=== PATIENT | male | born 1960 | race Caucasian/White ===

== ENCOUNTER 2024-01-16 10:28 | Emergency (ER) | payer MEDICARE, SELFPAY ==
[2024-01-16 10:42] VITALS: BP 154/84; PULSE 62; RESP 16; TEMP 36.3; O2SAT 98; BMI 25.1
--- NOTE | 2024-01-16 10:44 | XR_ITS ---
WS: [id number] Exam: XR chest 1V portable [id number] Date/Time of Exam: 01/16/2024 10:49 AM Reason For Exam: Shortness of breath No priors. The lungs are fully expanded and clear. Normal cardiomediastinal silhouette. Unremarkable bony elemen ts. XR/XR chest 1V portable [id number] IMPRESSION: 1. Negative chest.
--- NOTE | 2024-01-16 10:44 | ECG_ITS ---
[facility] Test Date: 2024-01-16 Pat Name: Davy Garcia Department: Room: Gender: Male Communication Assistant: : 1960 Requested By: Zully Cisneros Order Number: [id number] Bravo MD: Nikolas King M.D. Measurements Intervals [place] Rate: 66 P: 70 [place]: 152 QRS: 48 QRSD: 111 T: 54 QT: 393 QTc: 413 Interpretive Statements SINUS RHYTHM INCOMPLETE RIGHT BUNDLE BRANCH BLOCK [90+ ms QRS DURATION, TERMINAL R IN V1/V2, 40+ ms S IN I/aVL/V4/V5/V6] No previous ECG available for comparison Electronically Signed On 01-17-2024 0:08:00 CDT by Nikolas King M.D. [id number]
[2024-01-16 10:50] VITALS: BP 154/84; PULSE 62; RESP 16; TEMP 36.3; O2SAT 98
[2024-01-16 11:12] VITALS: PULSE 61; RESP 16; O2SAT 97
[2024-01-16] MEDS: ipratropium-albuterol 3 mL Neb INHALATION (11:12)
[2024-01-16] MEDS: albuterol 2.5 mg/3 mL Neb INHALATION (11:12)
[2024-01-16 11:16] VITALS: PULSE 67
--- NOTE | 2024-01-16 11:21 | ED_ITS ---
HPI - SOB/Dyspnea 2 General: Chief Complaint: Shortness of Breath/Dyspnea Stated Complaint: SOB Time Seen by Provider: 01/16/24 10:42 History of Present Illness: HPI Narrative: 63-year-old man with a history of asthma /COPD who presents emergency room with shortness of breath cough and wheeze. Says he had some discomfort in his upper chest with breathing. No known fevers. No sputum production. No abdominal pain. No nausea or vomiting. No altered mental status. His albuterol only helps briefly. Review of Systems 2 Narrative: Constitutional symptoms: Negative except as documented in HPI. Skin symptoms: Negative except as documented in HPI. Eye symptoms: Negative except as documented in HPI. ENMT symptoms: Negative except as documented in HPI. Respiratory symptoms: Negative except as documented in HPI. Cardiovascular symptoms: Negative except as documented in HPI. Gastrointestinal symptoms: Negative except as documented in HPI. Genitourinary symptoms: Negative except as documented in HPI. Musculoskeletal symptoms: Negative except as documented in HPI. Neurologic symptoms: Negative except as documented in HPI. Psychiatric symptoms: Negative except as documented in HPI. Endocrine symptoms: Negative except as documented in HPI. Physical Exam 2 Narrative: EXAM NARRATIVE: General: Alert, no acute distress. Skin: Warm, dry. Head: Normocephalic, atraumatic. Neck: Supple, trachea midline. Eye: Extraocular movements are intact. Ears, nose, mouth and throat: Oral mucosa moist. Cardiovascular: Regular rate and rhythm, Normal peripheral perfusion. Respiratory: coarse, scattered wheeze, mild increased wob. tachypnea, breath sounds are equal, Symmetrical chest wall expansion. Gastrointestinal: Soft, Nontender, Non distended, Normal bowel sounds. Musculoskeletal: Normal ROM, no deformity. Neurological: Alert and oriented to person, place, time, and situation, No focal neurological deficit observed. Psychiatric: Cooperative, appropriate mood & affect. Course 2 Vital Signs: Vital signs: Vital Signs Temperature 97.4 F L 01/16/24 10:50 Pulse Rate 67 01/16/24 11:16 Respiratory Rate 16 01/16/24 11:12 Blood Pressure 154/84 01/16/24 10:50 Pulse Oximetry 97 01/16/24 11:12 Oxygen Delivery Me thod Room Air 01/16/24 11:12 MDM - SOB/Dyspnea Medical Decision Making Differential diagnosis for patient with shortness of breath includes but is not limited to and based on the above HPI, review of systems and physical exam: Pneumonia. Bronchitis. Asthma or COPD with acute exacerbation. Acute coronary syndrome / CT. Pulmonary embolism. Anxiety. Congestive heart failure. Viral infections including influenza and Covid-19. Atrial fibrillation. Anxiety. Pleural effusion. Pneumothorax. Workup: Lab work, chest X-ray and EKG ordered to evaluate, rule in and rule out above pathologies Lab Review: Laboratory results were reviewed and interpreted by myself the emergency room physician. Lab work is fairly unremarkable. Mild leukocytosis. No anemia. No renal failure. EKG: Time 1048. Rate 66. Normal sinus rhythm, No ST-T changes, no ectopy, normal WA & QRS intervals, This was reviewed and interpreted by myself the ER physician at 1051 Chest x-ray: No acute process. No infiltrate. No pneumothorax. This was reviewed and interpreted by myself the ER physician. I reviewed the patient's medical record. Reexamination: Patient appears somewhat improved. Wheezes improved. He has no increased work of breathing. No oxygen requirements. No altered mental status. No focal motor deficits. Assessment and plan: COPD with acute exacerbation ?Breathing treatments and Solu-Medrol in the emergency room. - Discharged home - Discussed findings and plan with patient. Answered any questions. - All laboratory values were reviewed and interpreted personally by myself, the ER physician - All imaging was reviewed and interpreted personally by myself, the ER physician. - Evaluation and treatment of this problem were appropriate in the emergency setting Lab Data 01/16/24 11:23 01/16/24 11:23 Labs/Radiology: Radiology Impressions Chest X-Ray 01/16/24 10:44 IMPRESSION: 1. Negative chest. Laboratory Results WBC 11.54 10^3/uL (3.29-11.43) H 01/16/24 11:23 RBC 4.41 10^6/uL (3.85-5.65) 01/16/24 11:23 Hgb 15.20 g/dL (11.27-16.99) 01/16/24 11:23 Hct 42.6 % (37-53) 01/16/24 11:23 MCV 96.6 fl (82-101) 01/16/24 11:23 MCH 34.5 pg (27-33) H 01/16/24 11:23 MCHC 35.7 g/dL (30-55) 01/16/24 11:23 RDW 12.2 % (12.1-15.1) 01/16/24 11:23 Plt Count 193 10^3/cmm (157-399) 01/16/24 11:23 MPV 10.9 fL (7.4-10.4) H 01/16/24 11:23 Neut % (Auto) 74.6 % 01/16/24 11:23 Lymph % (Auto) 17.8 % 01/16/24 11:23 Converse % (Auto) 6.4 % 01/16/24 11:23 Eos % (Auto) 0.4 % 01/16/24 11:23 Baso % (Auto) 0.3 % 01/16/24 11:23 Neut # (Auto) 8.60 10^3/uL (1.8-7.7) H 01/16/24 11:23 Lymph # (Auto) 2.1 10^3/uL (0.8-4.8) 01/16/24 11:23 [place]verse # (Auto) 0.7 10^3/uL (0.2-0.9) 01/16/24 11:23 Eos # (Auto) 0.1 10^3/uL (0.0-0.8) 01/16/24 11:23 Baso # (Auto) 0.0 10^3/uL (0.0-0.1) 01/16/24 11:23 Nucleated RBC % (auto) 0 % 01/16/24 11:23 Nucleated RBCs # 0.0 /100WBC 01/16/24 11:23 Sodium 139 mmol/L (136-145) 01/16/24 11:23 Potassium 4.1 mmol/L (3.5-5.1) 01/16/24 11:23 Chloride 105 mmol/L (98-107) 01/16/24 11:23 Carbon Dioxide 22 mmol/L (22-29) 01/16/24 11:23 Anion Gap 16.1 (5-19) 01/16/24 11:23 BUN 7 mg/dL (8-23) L 01/16/24 11:23 Creatinine 0.6 mg/dL (0.7-1.2) L 01/16/24 11:23 GFR Calculation 135.2 mL/min (90-130) H 01/16/24 11:23 Glucose 101 mg/dL (65-115) 01/16/24 11:23 Calculated Osmolality 286 mOsm/kg (285-295) 01/16/24 11:23 Calcium 9.1 mg/dL (8.5-10.5) 01/16/24 11:23 Total Bilirubin 0.4 mg/dL (0.15-1.2) 01/16/24 11:23 AST 17 U/L (0-40) 01/16/24 11:23 ALT 20 U/L (0-41) 01/16/24 11:23 Alkaline Phosphatase 63 U/L (40-130) 01/16/24 11:23 C-Reactive Protein 3.0 mg/L (0.0-4.9) 01/16/24 11:23 Total Protein 7.0 g/dL (6.6-8.7) 01/16/24 11:23 Albumin 4.2 g/dL (3.5-5.2) 01/16/24 11:23 Globulin 2.8 g/dL (1.3-4.6) 01/16/24 11:23 All radiology interpretation(s) finalized by discharge Discharge Plan Discharge Patient Disposition: Home Condition: Stable Prescriptions: New Zithromax Z-Kahlil 250 mg tablet See Rx Instructions .ROUTE .COMPLEX Qty: 6 0RF Rx Instructions: For 250 mg dose pack: take 500 mg today (day 1), then 250 mg for 4 days (days 2-5) prednisone 20 mg tablet 60 mg PO DAILY Qty: 20 0RF Rx Instructions: 3 tabs (60 mg) x 3 days. 2 tabs (40 mg) x 3 days. 1 tab (20 mg) x 3 days. 1/2 tab (10 mg) x 4 days albuterol sulfate 90 mcg/actuation HFA aerosol inhaler 2 inh inhalation Q4H PRN (Reason: shortness of breath or wheezing) Qty: 6.7 0RF Rx Instructions: Please provide patient with a spacer No Action multivitamin Tablet 1 tab PO .QOD atorvastatin 40 mg tablet 40 mg PO DAILY Aspir-81 81 mg Tablet,Delayed Release (Dr/Ec) 81 mg PO DAILY vitamin B complex Tablet 1 tab PO DAILY albuterol sulfate 90 mcg/actuation HFA aerosol inhaler 2 puff INHALATION PRN PRN (Reason: Shortness Of Breath) lysine 500 mg Tablet 500 mg PO DAILY Angel Ellipta 200-62.5-25 mcg blister with device 1 inh INHALATION DAILY vitamin D3-vit K1-vit MK4-MK7 50-500-1,500 mcg Capsule 1 cap PO DAILY PreserVision AREDS-2 250-90-40-1 mg Capsule 1 tab PO BID Discharge Orders: Discharge ED (Routine); Ordered 01/16/24 Ordered By: Zully Jung Discharge Diet: Usual diet Discharge Activity: Increase activity as tolerated Patient Instructions: How to Use a Metered-Dose Inhaler and a Spacer (ED) Activity Restrictions/Additional Instructions: Thank you for choosing [facility] for your healthcare needs today. Please realize this is an emergency room and that we are providing you with a medical screening exam and this may not be complete and all inclusive of all the testing and or work up that you may need to determine your ailment or severity of your illness. You have been screened and evaluated and felt safe for discharge. Health conditions do change or evolve sometimes and as such it is important that you follow up with your Primary Doctor to be re checked, 3-5 days is a general good time frame for follow up. You are always welcome to return to the ED for re assessment if your symptoms are worsening or you have new concerns Coding Level of Care Code ED Junior Programmer for Mario Hylton
[2024-01-16 11:30] LABS: Basophils % 0.3 %; Eosinophils # 0.1 10^3/uL (0.0-0.8); Eosinophils % 0.4 %; Hematocrit 42.6 % (37-53); Lymphocytes # 2.1 10^3/uL (0.8-4.8); Lymphocytes % 17.8 %; Mean Corpuscular HGB Conc 35.7 g/dL (30-55); Mean Corpuscular Hemoglobin 34.5 pg (27-33); Mean Corpuscular Volume 96.6 fl (82-101); Mean Platelet Volume 10.9 fL (7.4-10.4); Monocytes # 0.7 10^3/uL (0.2-0.9); Monocytes % 6.4 %; Neutrophils % 74.6 %; Nucleated Red Blood Cells % 0 %; Platelet Count 193 10^3/cmm (157-399); Red Blood Count 4.41 10^6/uL (3.85-5.65); Red Cell Distribution Width 12.2 % (12.1-15.1); White Blood Count 11.54 10^3/uL (3.29-11.43)
[2024-01-16] MEDS: methylPREDNISolone sod succ 125 mg/2 mL INJ IVP (11:43)
[2024-01-16 11:49] LABS: Alanine Aminotransferase 20 U/L (0-41); Albumin Level 4.2 g/dL (3.5-5.2); Alkaline Phosphatase 63 U/L (40-130); Anion Gap 16.1 (5-19); Aspartate Amino Transferase 17 U/L (0-40); Blood Urea Nitrogen 7 mg/dL (8-23); Calcium 9.1 mg/dL (8.5-10.5); Carbon Dioxide 22 mmol/L (22-29); Chloride 105 mmol/L (98-107); Globulin 2.8 g/dL (1.3-4.6); Glomerular Filtration Rate 135.2 mL/min (90-130); Glucose 101 mg/dL (65-115); Osmolality Calculated 286 mOsm/kg (285-295); Potassium 4.1 mmol/L (3.5-5.1); Sodium 139 mmol/L (136-145); Total Bilirubin 0.4 mg/dL (0.15-1.2)
[2024-01-16 11:50] LABS: Creatinine Clr Calc Pharmacy 95.3964
[2024-01-16 12:57] VITALS: PULSE 65; O2SAT 98
== END 2024-01-16 12:58 | disposition home or self-care (01) ==
PROVIDERS: Emergency Provider Emergency Medicine
DX: J44.1 Chronic obstructive pulmonary disease with (acute) exacerbation (principal); Z79.82 Long term (current) use of aspirin
CPT/HCPCS: 71045; 80053; 85025; 86140; 93005; 94640; 96374; 99285; J2919; J7613

== ENCOUNTER 2024-05-17 22:12 | Emergency (ER) | payer MEDICARE, SELFPAY ==
[2024-05-17 22:27] VITALS: BP 177/93; PULSE 106; RESP 22; TEMP 36.3; O2SAT 99; BMI 25.1
--- NOTE | 2024-05-17 22:33 | ECG_ITS ---
[facility] Test Date: 2024-05-17 Pat Name: Davy Garcia Department: Room: Gender: Male Global Creative Chairman: : 1960 Requested By: Fermin Briones Order Number: [id number] Bravo MD: Nikolas King M.D. Measurements Intervals [place] Rate: 62 P: 74 OR: 159 QRS: 42 QRSD: 102 T: 60 QT: 394 QTc: 402 Interpretive Statements SINUS RHYTHM INCOMPLETE RIGHT BUNDLE BRANCH BLOCK [90+ ms QRS DURATION, TERMINAL R IN V1/V2, 40+ ms S IN I/aVL/V4/V5/V6] Compared to ECG 01/16/2024 10:48:50 No significant changes Electronically Signed On 05-19-2024 00:13:31 CDT by Nikolas King M.D. [id number]
--- NOTE | 2024-05-17 22:42 | XRR_ITS ---
PROCEDURE INFORMATION: Exam: XR Chest Exam date and time: 05/17/2024 11:02 PM Age: 64 years old Clinical indication: Shortness of breath; Patient HX: C/O SOB and dyspnea TECHNIQUE: Imaging protocol: Radiologic exam of the chest. Views: 1 view. COMPARISON: CR XR chest 1V portable [id number] 01/16/2024 10:50 AM FINDINGS: Lungs: Emphysematous changes. Pleural spaces: Unremarkable. No pleural effusion. No pneumothorax. Heart/Mediastinum: Unremarkable. No cardiomegaly. Bones/joints: Unremarkable. XR/XR chest 1V portable [id number] IMPRESSION: Emphysematous changes, negative for infiltrate.
--- NOTE | 2024-05-17 23:02 | ED_ITS ---
HPI - SOB/Dyspnea 2 General: Chief Complaint: Shortness of Breath/Dyspnea Stated Complaint: SOB Time Seen by Provider: 05/17/24 22:42 History of Present Illness: HPI Narrative: Patient is a 64-year-old male that presents to the emergency department with chest tightness, dyspnea. Onset 1 week ago. Patient reports that approximately 10 days ago he underwent a cardiac stress test. COPD symptoms began to develop approximately 48 hours after the stress test. He denies congestion. Intermittent cough that is nonproductive. Denies chest pain but has tightness. Patient denies fever, chills, nausea vomiting. Associated symptoms: Deny abdominal pain, chest congestion, chest pain, dizziness, extremity pain, fever(s), nausea, orthopnea, palpitations, polydipsia, polyuria or vomiting Related Data Home Medications Medication Instructions Recorded Confirmed albuterol sulfate 90 mcg/actuation 2 puff inhalation PRN PRN 01/16/24 01/16/24 aerosol inhaler Shortness Of Breath aspirin 81 mg tablet,delayed 81 mg PO DAILY 01/16/24 01/16/24 release atorvastatin 40 mg tablet 40 mg PO DAILY 01/16/24 01/16/24 fluticasone fur. 200 mcg-umeclid 1 inh inhalation DAILY 01/16/24 01/16/24 62.5 mcg-vilant 25 mcg inhalat.powder (Trelegy Ellipta) lysine 500 mg tablet 500 mg PO DAILY 01/16/24 01/16/24 multivitamin 1 tab PO .QOD 01/16/24 01/16/24 vit C 250 mg-vit E 90 mg-zinc 40 1 tab PO BID 01/16/24 01/16/24 mg-copper 1 ts-qrfgrr-fautci capsule (PreserVision AREDS-2) vit D3 50 mcg-vitamin K1 500 1 cap PO DAILY 01/16/24 01/16/24 mcg-MK4 1,500 mcg-MK7 180 mcg capsule vitamin B complex 1 tab PO DAILY 01/16/24 01/16/24 Previous Rx's Medication Instructions Recorded albuterol sulfate 90 mcg/actuation 2 inh inhalation Q4H PRN shortness 01/16/24 aerosol inhaler of breath or wheezing #6.7 grams azithromycin 250 mg tablet See Rx Instructions PO .COMPLEX #6 01/16/24 (Zithromax Z-Kahlil) tabs prednisone 20 mg tablet 60 mg (3 x 20 mg) PO DAILY #20 tabs 01/16/24 amoxicillin 875 mg-potassium 1 tab PO BID 5 days #10 tabs 05/18/24 clavulanate 125 mg tablet prednisone 20 mg tablet 20 mg PO BID 5 days #10 tabs 05/18/24 Allergies Allergy/AdvReac Type Severity Reaction Status Date / Time codeine Allergy ADR-Headach Verified 05/17/24 22:34 e Review of Systems 2 General: Reports: 10 or more systems reviewed and unremarkable except in HPI and below Narrative: Constitutional symptoms: Negative except as documented in HPI. Skin symptoms: Negative except as documented in HPI. Eye symptoms: Negative except as documented in HPI. ENMT symptoms: Negative except as documented in HPI. Respiratory symptoms: Negative except as documented in HPI. Cardiovascular symptoms: Negative except as documented in HPI. Gastrointestinal symptoms: Negative except as documented in HPI. Genitourinary symptoms: Negative except as documented in HPI. Musculoskeletal symptoms: Negative except as documented in HPI. Neurologic symptoms: Negative except as documented in HPI. Psychiatric symptoms: Negative except as documented in HPI. Endocrine symptoms: Negative except as documented in HPI. Const: Denies: fever(s), chills, change in appetite, change in weight, fatigue or malaise Eyes: Denies: change in vision, eye discomfort, eye discharge or eye redness ENMT: Denies: throat pain, enlarged tonsils, odynophagia, hoarseness, ear or mastoid pain, ear discharge, change in hearing, tinnitus, nasal discharge, nasal congestion, post nasal drip or sinus pain Card: Denies: chest pain, palpitations, irregular heart rhythm, edema, dyspnea on exertion, orthopnea or leg pain with exertion Resp: Reports: dyspnea, non-productive cough and pain on inspiration; Denies: productive cough, wheezing, stridor or chest congestion GI: Denies: abdominal pain, nausea, vomiting, dysphagia, diarrhea, constipation, bloating, GI cramping or hematochezia : Denies: flank pain, dysuria, urinary frequency, urinary urgency, urinary hesitancy, oliguria or hematuria Musc: Denies: neck pain, back pain, extremity pain, joint pain, joint swelling, joint redness, joint warmth or muscle weakness Skin/Breast: Denies: rash, pruritus, erythema, photosensitivity or new lesions Neuro: Denies: headache(s), numbness in extremities, weakness in extremities, sensory changes, lack of coordination, difficulty walking, frequent falls, dizziness, confusion, Slurred speech present, difficulty communicating thoughts, seizure-like activity or involuntary movements Endo: Denies: polyuria, polydipsia or tired all the time Braeden/Lymph: Denies: easy bruising or easy bleeding Physical Exam 2 Narrative: EXAM NARRATIVE: General: Alert, no acute distress. Skin: Warm, dry. Head: Normocephalic, atraumatic. Neck: Supple, trachea midline. Eye: Extraocular movements are intact. Ears, nose, mouth and throat: Oral mucosa moist. Cardiovascular: Regular rate and rhythm, Normal peripheral perfusion. Respiratory: coarse, mild increased wob. tachypnea, breath sounds are equal, Symmetrical chest wall expansion. Gastrointestinal: Soft, Nontender, Non distended, Normal bowel sounds. Musculoskeletal: Normal ROM, no deformity. Neurological: Alert and oriented to person, place, time, and situation, No focal neurological deficit observed. Psychiatric: Cooperative, appropriate mood & affect. Course 2 Vital Signs: Vital signs: Vital Signs Temperature 97.4 F L 05/17/24 22:27 Pulse Rate 63 05/17/24 23:51 Respiratory Rate 13 05/17/24 23:51 Blood Pressure 126/85 05/17/24 23:51 Pulse Oximetry 94 05/17/24 23:51 Oxygen Delivery Me thod Room Air 05/17/24 23:51 MDM - SOB/Dyspnea Medical Decision Making Patient is a 64-year-old man that presents to the emergency department with complaints of dyspnea, chest tightness on inspiration, intermittent cough. He has a history of COPD and has had a similar type episode where he was diagnosed with COPD exacerbation. He states that his symptoms began after he was involved in a physical stress test. His symptoms have progressed for over a week. Patient underwent chest x-ray and laboratory evaluation which reveals a mild leukocytosis and emphysema type changes but no definitive infiltrates. His oxygen saturation has been stable at 94 to 99% on room air. He is afebrile, has a sinus rhythm. EKG shows sinus rhythm with a ventricular rate of 72 beats a minute and a QTc of 426. No ectopy, ST elevation or abnormal T wave inversion. Patient has a normal troponin, normal renal function, and normal electrolytes. Plan to treat him for COPD exacerbation. He was given steroids here in the emergency department as well as antibiotics. He will go home on the same medications. Lab Data 05/17/24 22:54 05/17/24 22:54 Labs/Radiology: Radiology Impressions Chest X-Ray 05/17/24 22:42 IMPRESSION: Emphysematous changes, negative for infiltrate. Laboratory Results WBC 12.34 10^3/uL (3.29-11.43) H 05/17/24 22:54 RBC 4.57 10^6/uL (3.85-5.65) 05/17/24 22:54 Hgb 15.30 g/dL (11.27-16.99) 05/17/24 22:54 Hct 44.4 % (37-53) 05/17/24 22:54 MCV 97.2 fl (82-101) 05/17/24 22:54 MCH 33.5 pg (27-33) H 05/17/24 22:54 MCHC 34.5 g/dL (30-55) 05/17/24 22:54 RDW 12.4 % (12.1-15.1) 05/17/24 22:54 Plt Count 188 10^3/cmm (157-399) 05/17/24 22:54 MPV 11.1 fL (7.4-10.4) H 05/17/24 22:54 Neut % (Auto) 63.4 % 05/17/24 22:54 Lymph % (Auto) 28.6 % 05/17/24 22:54 Divide % (Auto) 6.3 % 05/17/24 22:54 Eos % (Auto) 1.0 % 05/17/24 22:54 Baso % (Auto) 0.4 % 05/17/24 22:54 Neut # (Auto) 7.82 10^3/uL (1.8-7.7) H 05/17/24 22:54 Lymph # (Auto) 3.5 10^3/uL (0.8-4.8) 05/17/24 22:54 Divide # (Auto) 0.8 10^3/uL (0.2-0.9) 05/17/24 22:54 Eos # (Auto) 0.1 10^3/uL (0.0-0.8) 05/17/24 22:54 Baso # (Auto) 0.1 10^3/uL (0.0-0.1) 05/17/24 22:54 Nucleated RBC % (auto) 0 % 05/17/24 22:54 Nucleated RBCs # 0.0 /100WBC 05/17/24 22:54 Sodium 137 mmol/L (136-145) 05/17/24 22:54 Potassium 3.9 mmol/L (3.5-5.1) 05/17/24 22:54 Chloride 102 mmol/L (98-107) 05/17/24 22:54 Carbon Dioxide 24 mmol/L (22-29) 05/17/24 22:54 Anion Gap 14.9 (5-19) 05/17/24 22:54 BUN 6 mg/dL (8-23) L 05/17/24 22:54 Creatinine 0.6 mg/dL (0.7-1.2) L 05/17/24 22:54 GFR Calculation 134.8 mL/min (90-130) H 05/17/24 22:54 Glucose 99 mg/dL (65-115) 05/17/24 22:54 Calculated Osmolality 282 mOsm/kg (285-295) L 05/17/24 22:54 Calcium 8.9 mg/dL (8.5-10.5) 05/17/24 22:54 Total Bilirubin 0.3 mg/dL (0.15-1.2) 05/17/24 22:54 AST 23 U/L (0-40) 05/17/24 22:54 ALT 30 U/L (0-41) 05/17/24 22:54 Alkaline Phosphatase 73 U/L (40-130) 05/17/24 22:54 Troponin T Baseline 8 ng/L (0-15) 05/17/24 22:54 NT-Pro-B Natriuret Pep 47 pg/mL (0-125) 05/17/24 22:54 Total Protein 6.5 g/dL (6.6-8.7) L 05/17/24 22:54 Albumin 4.5 g/dL (3.5-5.2) 05/17/24 22:54 Globulin 2.0 g/dL (1.3-4.6) 05/17/24 22:54 All radiology interpretation(s) finalized by discharge Discharge Plan Discharge Patient Disposition: Home Clinical Impression: Acute exacerbation of chronic obstructive airways disease Condition: Stable Prescriptions: New amoxicillin-pot clavulanate 875-125 mg tablet 1 tab PO BID 5 Days Qty: 10 0RF prednisone 20 mg tablet 20 mg PO BID 5 Days Qty: 10 0RF No Action multivitamin Tablet 1 tab PO .QOD atorvastatin 40 mg tablet 40 mg PO DAILY Aspir-81 81 mg Tablet,Delayed Release (Dr/Ec) 81 mg PO DAILY vitamin B complex Tablet 1 tab PO DAILY albuterol sulfate 90 mcg/actuation HFA aerosol inhaler 2 puff INHALATION PRN PRN (Reason: Shortness Of Breath) lysine 500 mg Tablet 500 mg PO DAILY Trelegy Ellipta 200-62.5-25 mcg blister with device 1 inh INHALATION DAILY vitamin D3-vit K1-vit MK4-MK7 50-500-1,500 mcg Capsule 1 cap PO DAILY PreserVision AREDS-2 250-90-40-1 mg Capsule 1 tab PO BID Zithromax Z-Kahlil 250 mg tablet See Rx Instructions .ROUTE .COMPLEX Qty: 6 0RF Rx Instructions: For 250 mg dose pack: take 500 mg today (day 1), then 250 mg for 4 days (days 2-5) prednisone 20 mg tablet 60 mg PO DAILY Qty: 20 0RF Rx Instructions: 3 tabs (60 mg) x 3 days. 2 tabs (40 mg) x 3 days. 1 tab (20 mg) x 3 days. 1/2 tab (10 mg) x 4 days albuterol sulfate 90 mcg/actuation HFA aerosol inhaler 2 inh inhalation Q4H PRN (Reason: shortness of breath or wheezing) Qty: 6.7 0RF Rx Instructions: Please provide patient with a spacer Discharge Orders: Discharge ED (Routine); Ordered 05/18/24 Ordered By: Kwadwo Vega Referrals: Surya Robert MD [Primary Care Provider] - Discharge Diet: Advance as tolerated Discharge Activity: Resume usual activity Patient Instructions: COPD (Chronic Obstructive Pulmonary Disease) (ED), Pain Management Coding Level of Care Code ED [employer] for Mario Hylton
[2024-05-17 23:04] LABS: Basophils # 0.1 10^3/uL (0.0-0.1); Basophils % 0.4 %; Eosinophils # 0.1 10^3/uL (0.0-0.8); Hematocrit 44.4 % (37-53); Lymphocytes # 3.5 10^3/uL (0.8-4.8); Lymphocytes % 28.6 %; Mean Corpuscular HGB Conc 34.5 g/dL (30-55); Mean Corpuscular Hemoglobin 33.5 pg (27-33); Mean Corpuscular Volume 97.2 fl (82-101); Mean Platelet Volume 11.1 fL (7.4-10.4); Monocytes # 0.8 10^3/uL (0.2-0.9); Monocytes % 6.3 %; Neutrophils # 7.82 10^3/uL (1.8-7.7); Neutrophils % 63.4 %; Nucleated Red Blood Cells % 0 %; Platelet Count 188 10^3/cmm (157-399); Red Blood Count 4.57 10^6/uL (3.85-5.65); Red Cell Distribution Width 12.4 % (12.1-15.1); White Blood Count 12.34 10^3/uL (3.29-11.43)
[2024-05-17] MEDS: methylPREDNISolone sod succ 125 mg/2 mL INJ IV (23:20)
[2024-05-17 23:26] LABS: Troponin(5th) Baseline 8 ng/L (0-15)
[2024-05-17 23:28] VITALS: BP 142/91; PULSE 60; RESP 16; O2SAT 96
[2024-05-17 23:34] LABS: Alanine Aminotransferase 30 U/L (0-41); Albumin Level 4.5 g/dL (3.5-5.2); Alkaline Phosphatase 73 U/L (40-130); Anion Gap 14.9 (5-19); Aspartate Amino Transferase 23 U/L (0-40); Blood Urea Nitrogen 6 mg/dL (8-23); Calcium 8.9 mg/dL (8.5-10.5); Carbon Dioxide 24 mmol/L (22-29); Chloride 102 mmol/L (98-107); Glomerular Filtration Rate 134.8 mL/min (90-130); Glucose 99 mg/dL (65-115); NT Pro B Type Natriuretic Pept 47 pg/mL (0-125); Osmolality Calculated 282 mOsm/kg (285-295); Potassium 3.9 mmol/L (3.5-5.1); Sodium 137 mmol/L (136-145); Total Bilirubin 0.3 mg/dL (0.15-1.2); Total Protein 6.5 g/dL (6.6-8.7)
[2024-05-17 23:37] LABS: Creatinine Clr Calc Pharmacy 94.1244
[2024-05-17 23:51] VITALS: BP 126/85; PULSE 63; RESP 13; O2SAT 94
[2024-05-18] VITALS: BP 145/95; PULSE 59; RESP 14; O2SAT 95
[2024-05-18 00:08] LABS: Covid PCR NEGATIVE (Negative); Influenza A NEGATIVE (Negative); Influenza B NEGATIVE (Negative); Respiratory Syncytial Virus Ce NEGATIVE (Negative)
[2024-05-18] MEDS: amoxicillin-clav 875-125 mg Tablet 1 TAB PO (00:11)
[2024-05-18 00:26] VITALS: BP 133/89; PULSE 60; RESP 14; O2SAT 95
== END 2024-05-18 00:26 | disposition home or self-care (01) ==
PROVIDERS: Emergency Provider Nurse Practitioner; PCP Family Medicine
DX: J44.1 Chronic obstructive pulmonary disease with (acute) exacerbation (principal); Z79.82 Long term (current) use of aspirin
CPT/HCPCS: 0241U; 71045; 80053; 83880; 84484; 85025; 93005; 96374; 99285; J2919

== ENCOUNTER 2025-02-23 09:03 | Outpatient (CLI) | payer MEDICARE, SELFPAY ==
--- NOTE | 2025-02-23 09:09 | CT_ITS ---
WS: [id number] LDCT LUNG CANCER SCREENING TECHNIQUE: Noncontrast CT of the chest with coronal and sagittal reformatted images. CLINICAL INFORMATION: NICOTINE DEPENDENCE,CIGARETTES COMPARISON: None. DLP: 64.81 mGy.cm DIvol: Mean CTDIvol: 1.10 (mGy) All CT scans at [facility] use at least one of these dose optimization techniques: automated exposure control; mA and/or kV adjustment per patient size (includes targeted exams where dose is matched to clinical indication); or iterative reconstruction. FINDINGS: Moderate chronic emphysematous changes. Few tiny scattered subcentimeter nodules. No suspicious pulmonary parenchymal abnormalities. Subsegmental atelectasis in the lingula. Aortic calcification. Coronary calcification. No mediastinal or hilar lymphadenopathy. Normal GE junction. No axillary lymphadenopathy. Mild thoracic curve. Mild thoracic kyphosis. Slight nodular thickening LEFT adrenal gland. CT/CT lung screening [id number] IMPRESSION: LUNG-RADS: 2-Benign Appearance or Behavior FOLLOW UP: 12 Month: Continue annual screening with LDCT
== END 2025-02-23 09:04 | disposition home or self-care (01) ==
LOC: RAD 09:04
PROVIDERS: PCP Family Medicine; Visit Provider Family Medicine
DX: Z12.2 Encounter for screening for malignant neoplasm of respiratory organs (principal); F17.210 Nicotine dependence, cigarettes, uncomplicated; J43.9 Emphysema, unspecified; J98.11 Atelectasis; I35.8 Other nonrheumatic aortic valve disorders; M40.294 Other kyphosis, thoracic region; E27.8 Other specified disorders of adrenal gland; I25.10 Atherosclerotic heart disease of native coronary artery without angina pectoris
CPT/HCPCS: 71271

== ENCOUNTER 2025-04-09 12:51 | Outpatient (CLI) | payer MEDICARE, SELFPAY | END 2025-04-09 12:52 | disposition home or self-care (01) | LOC: SLEEP 12:53 | PROVIDERS: PCP Family Medicine; Referring Provider Family Medicine; Visit Provider Internal Medicine Pulmonary Disease | DX: G47.30 Sleep apnea, unspecified (principal) | CPT/HCPCS: G0399 ==

== ENCOUNTER 2025-04-19 14:12 | Emergency (ER) | payer MEDICARE, SELFPAY ==
--- OUTSIDE RECORDS SUMMARY | 2012-04-27 06:25 | XMS_ITS | Continuity of Care Document ---
Author Organization [facility] Address [address] [place] [address] Phone Care Team Providers Care Redipper Name Role Phone Unavailable Unavailable Unavailable Procedures Procedure Date DOT Physical With UA Ua Dip Stik/tablet; Wo Micro A 12 DOT Physical With UA Advance Directives Directive Yes / No Effective Date File Name No Information Encounters Encounter Description Practice Location Reason(s) For Visit Diagnoses Date Provider Providers Copied on Encounter DOT Physical With UA [facility], [address], [place], [place], [id number], [place] tel:[phone] [facility] DOT Physical (chief complaint) No Information No Information DOT Physical With [facility], [address], [place], [place], [id number], [place] tel:[phone] [facility] Med Exam Nec-admin PurpMed Exam Nec-admin Purp No Information Family History Family Member Type Diagnosis Age At Onset No Information Payers Payer name Insurance type Covered constitution party ID Authoriza tion(s) No Information Social History Type Description Quantity Date Captured Comments Sex Male Smoking Status No Information Vital Signs Date / Time: Height Weight BMI Pulse Rate Blood Pressure Temperature Respiratory Rate Body Surface Area Head Circumference Head Circ. Percentile Wt./Ramón. Percentile BMI percentile Pulse Ox Inhaled Ox 11:45 AM 69.00 in 77.100 kg (170.00 lbs) 25.1 1 kg/m eter (2) 87 /min 110/70 mm[Hg] 97.40 F 14 /min 98 % Chief Complaint And Reason For Visit From encounter dated '04/27/2012 11:25'. DOT Physical (chief complaint) Reason For Referral Reason For Referral No Information History Of Present Illness Encounter Date Complaint History Of Prese nt Illness No Information Functional Status Date Functional Assessmen t No Information Instructions Date Instruction Additional Infor mation No Information Assessments Type Assessment Date No Information Patient Care Teams Name Effective Dates (start - stop) Status Members No Information
--- OUTSIDE RECORDS SUMMARY | 2013-02-28 02:45 | XMS_ITS | Continuity of Care Document ---
Author Organization [facility] Address [address] [place] [address] Phone Care Team Providers Care Bridge Builder Name Role Phone Siddhartha Bender MD Unavailable Unavailable Allergies, Adverse Reactions, Alerts Substance Reaction Status Criticality codeine Active No Information Medications Medication Instructions Dosage Effective Dates (start - stop) Status Comments PreserVision AREDS 14,320 unit-226 mg-200 unit capsule - Active MULTIVITAMINS (unknown strength) Not Available - Active Advance Directives Directive Yes / No Effective Date File Name Resuscitation Not Answered N/A N/A Life Support Not Answered N/A N/A Intubation Not Answered N/A N/A Antibiotics Not Answered N/A N/A IV Fluid Support Not Answered N/A N/A Tube Feed Not Answered N/A N/A Other Directive N/A N/A WARNING:The information contained in this section is historical and is provided for information only and does not constitute a legal document or any assurance that the information is still accurate. Please verify the information with the cruz of the legal document before using it for clinical purposes. Encounters Encounter Description Practice Location Reason(s) For Visit Diagnoses Date Provider [facility], [address], [place], [id number], tel:[phone] [place] No Information 2012 Napoleon Carl. [address], [place], [id number], . tel:[phone] [facility], [address], [place], [id number], tel:[phone] [place] No Information 2012 Napoleon Carl. [address], [id number], [place]. tel:[phone] [facility], [address], [place], [id number], tel:[phone] [place] No Information 2011 Napoleon Carl. [address], [place], [id number], [place]. tel:[phone] [facility], [address], [place], [id number], tel:[phone] [place] No Information 2011 Napoleon Carl. [address], [place], [id number], [place]. tel:[phone] Family History Family Member Type Diagnosis Age At Onset Problem (finding) Family history of No known significant family history Payers Payer name Insurance type Covered democrat ID Authoressence acevedo(s) [facility] [id number] [employer] Copay Card Program CI [id number] Social History Type Description Quantity Date Captured Comments Alcohol Use Details Caffeine Use Details Unknown Tobacco Use Status Smoking Status No Information Sex Male Chief Complaint And Reason For Visit No Information History Of Present Illness Encounter Date Complaint History Of Prese nt Illness No Information Instructions Date Instruction Additional Infor gifty Macular Degeneration , Dry, OS - FA and OCT reveal no evidence of CNV OS. Related to Macular Degeneration, Dry Assessments Type Assessment Date No Information
[2025-04-19 14:14] VITALS: BP 147/80; PULSE 70; TEMP 36.4; O2SAT 96
--- NOTE | 2025-04-19 14:16 | XRR_ITS ---
PROCEDURE INFORMATION: Exam: XR Chest Exam date and time: 04/19/2025 2:38 PM Age: 65 years old Clinical indication: Shortness of breath; Additional info: SOB TECHNIQUE: Imaging protocol: Radiologic exam of the chest. Views: 1 view. COMPARISON: 1. CT lung screening [id number] 02/23/2025 9:30 AM 2. CR XR chest 1V portable [id number] 05/17/2024 11:02 PM FINDINGS: Lungs: Bullous disease again noted, predominating in the upper lungs. No acute infiltrates. Pleural spaces: Unremarkable. No pleural effusion. No pneumothorax. Heart/Mediastinum: Unremarkable. No cardiomegaly. Bones/joints: Unremarkable. XR/XR chest 1V portable [id number] IMPRESSION: 1. No acute disease identified in the chest. 2. Bullous disease again noted.
--- OUTSIDE RECORDS SUMMARY | 2025-04-19 14:17 | XMS_ITS | Data Portability ---
Author Organization GUERLINE Valladares [facility] Darlene Reid [facility] Address [address] [address] Care Team Providers Care Lead Teller Name Role Phone ABIGAIL ROBERT Primary Care Provider [phone] Assessment Encounter Date Assessment Date Assessment LastModified by Organization Details LastModified Time 04/22/2024 04/22/2024 Will obtain routine lab work today. Discussed well-balanced diet and regular exercise. [email or web address] Not available 04/23/2024 10:45:07 Plan of Treatment Reminders Order Date Submit Date Provider Last Modified By Organization Details Last Modified Time Details Appointments None recorded. Lab hemoglobin A1C/hemoglo bin total, QN, blood 2023 [facility], [address], [facility], [place], [address], 11:47:44 lipid panel, blood 2023 [facility], [address], [facility], [place], [address], 15:20:59 CMP, serum or plasma 2023 [facility], [address], [facility], [place], [address], 15:20:57 CBC 2023 [facility], [address], [address], [place], [address], 4 10:25:49 Referral None recorded. Procedures None recorded. Surgeries None recorded. Imaging home sleep study 2024 025 [email or web address] 23 [facility] (Scheduling Orders), [address], [place], [address], 5 14:24:03 LDCT, chest, for lung cancer screening 2024 025 [email or web address] [facility] (Scheduling Orders), [address], [place], [address], 5 12:09:02 cardiac stress test 2023 024 [email or web address] 2 [facility] (Scheduling Orders), [address], [place], [address], 4 18:41:22 Medication Orders azithromyci n 250 mg tablet 2024 025 [facility] #[id number], [address], [address], [place], [address], 5 16:34:47 doxycycline hyclate 100 mg capsule 2023 025 [facility]acy #[id number], [address], [address], [place], [address], 5 16:21:17 prednisone 20 mg tablet 2023 025 [facility]acy #[id number], [address], [address], [place], [address], 5 16:21:24 prednisone 20 mg tablet 2023 024 [email or web address] [id number], [address], [address], [place], [address], 16:21:21 Patient TargetsNo targets recorded. Patient InstructionsNo instructions recorded. Reason for Referral None Reported. Results Created Date Observation Date Name Description Value Unit Range Abnormal Flag Note LastModifiedBy Organization Detail LastModifiedTime 04/30/2004/30/2024 CBC WBC 11.1 x10 4.5-10 .5 high Not Available [facility] [address], [place], [address], 04/30/2024 10:25:49 04/30/2004/30/2024 CBC RBC 4.62 x10 4.30-5 .90 Not Available [facility] [address], [place], [address], 04/30/2024 10:25:49 04/30/2004/30/2024 CBC HGB 15.7 g/dL 13.5-1 8.0 Not Available [facility] [address], [place], [address], 04/30/2024 10:25:49 04/30/2004/30/2024 CBC HCT 45.6 % 35.0-6 0.0 Not Available [facility] [address], [place], [address], 04/30/2024 10:25:49 04/30/2004/30/2024 CBC MCV 98.6 fL 80.0-9 9.9 Not Available [facility] [address], [place], [address], 04/30/2024 10:25:49 04/30/2004/30/2024 CBC MCH 34.0 pg 27.0-3 2.0 high Not Available [facility] [address], [place], [address], 04/30/2024 10:25:49 04/30/2004/30/2024 CBC MCHC 34.4 g/dL 32.0-3 6.0 Not Available [facility] [address] [facility] [address] [facility], [place], [address], 04/30/2024 10:25:49 04/30/2004/30/2024 CBC RDW 13.2 % 11.5-1 4.5 Not Available [facility] [address] [facility] [address] [facility], [place], [address], 04/30/2024 10:25:49 04/30/2004/30/2024 CBC plt 192.1 x10 150.0- 451.0 Not Available [facility] [address] [facility] [address], [place], [address], 04/30/2024 10:25:49 04/30/20 24 04/30/2024 CBC lymphocytes % 29.1 % 20.0-5 0.0 Not Available [facility] [address] [facility], [place], [address], 04/30/2024 10:25:49 04/30/20 24 04/30/2024 CBC granulcytes % 61.1 % 30.0-7 0.0 Not Available [facility] [address] [facility], [place], [address], 04/30/2024 10:25:49 04/30/2004/30/2024 CBC monocytes % 7.1 % 2.0-16 .0 Not Available [facility] [address] [facility], [place], [address], 04/30/2024 10:25:49 04/30/20 24 04/30/2024 CBC granulcytes# 6.8 x10 Not Delia ilable [facility] [address] [facility] [facility], [place], [address], 04/30/2024 10:25:49 04/30/2004/30/2024 CBC lymphocytes # 3.2 x10 Not Available [facility] [address] [facility] [address] [facility], [place], [address], 04/30/2024 10:25:49 04/30/2004/30/2024 CBC monocytes # 0.8 x10 Not Avai lable [facility] [address] [facility], [place], [address], 04/30/2024 10:25:49 04/30/2004/30/2024 HBA1C hemaglobin A1C 5.6 4.2-6. 5 Not Available [facility] [address] [facility], [place], [address], 04/30/2024 11:47:44 04/30/2004/30/2024 CMP (MALE ) glucose 110.0 mg/dL 60.0-9 9.0 high Not Available [facility] [address] [facility], [place], [address], 04/30/2024 15:20:56 04/30/2004/30/2024 CMP (MALE ) BUN (blood urea nitrogen) 9.0 mg/dL 10.0-2 6.0 low Not Available [facility] [address] [facility], [place], [address], 04/30/2024 15:20:56 04/30/2004/30/2024 CMP (MALE ) creatinine (serum) 0.8 mg/dL 0.4-1. 5 Not Available [facility] [address] [facility], [place], [address], 04/30/2024 15:20:56 04/30/2004/30/2024 CMP (MALE ) BUN/creatini ne ratio 12.00 ratio Not Available [facility] [address] [facility] [address], [place], [address], 04/30/2024 15:20:56 04/30/20 24 04/30/2024 CMP (MALE ) eGFR calculated 110.7 Not Available [facility] [address] [facility] [address] [facility], [place], [address], 04/30/2024 15:20:56 04/30/20 24 04/30/2024 CMP (MALE ) total protein 7.2 g/dL 6.0-8. 5 Not Available [facility] [address] [facility] [address] [facility] [address], [place], [address], 04/30/2024 15:20:56 04/30/20 24 04/30/2024 CMP (MALE ) total bilirubin 0.7 mg/dL 0.2-1. 3 Not Available [facility] [address] [facility] [address], [place], [address], 04/30/2024 15:20:56 04/30/20 24 04/30/2024 CMP (MALE ) albumin 4.5 g/dL 3.5-5. 5 Not Available [facility] [address] [facility] [address] [facility], [place], [address], 04/30/2024 15:20:56 04/30/20 24 04/30/2024 CMP (MALE ) globulin 2.7 calc Not Available [facility] [address], [place], [address], 04/30/2024 15:20:56 04/30/20 24 04/30/2024 CMP (MALE ) AST (SGOT) 28.0 U/L 0.0-46 .0 Not Available [facility] [address] [facility] [address] [facility], [place], [address], 04/30/2024 15:20:56 04/30/20 24 04/30/2024 CMP (MALE ) altv (SGPT) 30.0 U/L 13.0-6 9.0 normal Not Available [facility] [address] [facility], [place], [address], 04/30/2024 15:20:56 04/30/2004/30/2024 CMP (MALE ) A/G ratio 1.7 ratio Not Available [facility] [address] [facility], [place], [address], 04/30/2024 15:20:56 04/30/2004/30/2024 CMP (MALE ) ALP phos 70.0 U/L 30.0-1 40.0 normal Not Available [facility] [address] [facility] [address], [place], [address], 04/30/2024 15:20:56 04/30/2004/30/2024 CMP (MALE ) calcium 9.7 mg/dL 8.4-10 .5 Not Available [facility] [address] [facility] [address], [place], [address], 04/30/2024 15:20:56 04/30/20 24 04/30/2024 CMP (MALE ) sodium 141.0 mmol/ L 136.0- 145.0 Not Available [facility] [address] [facility], [place], [address], 04/30/2024 15:20:56 04/30/2004/30/2024 CMP (MALE ) potassium 4.1 mmol/ L 3.5-5. 1 Not Available [facility] [address] [facility] [address], [place], [address], 04/30/2024 15:20:56 04/30/20 24 04/30/2024 CMP (MALE ) chloride 107.0 mmol/ L 98.0-1 10.0 normal Not Available [facility] [address] [facility], [place], [address], 04/30/2024 15:20:56 04/30/20 24 04/30/2024 CMP (MALE ) C02 28.0 mmol/ L 22.0-3 1.0 Not Available [facility] [address] [facility] [address], [place], [address], 04/30/2024 15:20:56 04/30/20 24 04/30/2024 CMP (MALE ) anion gap 6.0 calc Not Available [facility] [address] [facility], [place], [address], 04/30/2024 15:20:56 04/30/2004/30/2024 CMP (MALE ) osmolality 290.5 calc Not Available [facility] [address] [facility], [place], [address], 04/30/2024 15:20:56 04/30/2004/30/2024 LIPID PROFI LE (MALE ) cholesterol 126.0 mg/dL 0.0-20 0.0 Not Available [facility] [address] [facility], [place], [address], 04/30/2024 15:20:59 04/30/2004/30/2024 LIPID PROFI LE (MALE ) trig 70.0 mg/dL 0.0-15 0.0 Not Available [facility] [address] [facility], [place], [address], 04/30/2024 15:20:59 04/30/20 24 04/30/2024 LIPID PROFI LE (MALE ) HDL - direct 37.0 mg/dL >40.0 low Not Available [facility] [address] [facility], [place], [address], 04/30/2024 15:20:59 04/30/20 24 04/30/2024 LIPID PROFI LE (MALE ) VLDL - direct 14.0 mg/dL Not Available [facility] [address] [facility] [address], [place], [address], 04/30/2024 15:20:59 04/30/20 24 04/30/2024 LIPID PROFI LE (MALE ) LDL - direct 75.0 mg/dL 0.0-13 0.0 Not Available [facility] [address], [place], [address], 04/30/2024 15:20:59 05/18/2005/09/2024 cardi ac stres s test No observ ation record ed. [facility] [address] [place], [address], 05/19/2024 10:35:17 02/24/20 25 02/23/2025 LDCT, chest , for lung cance r scretaylor gamez No observ ation record ed. [address] [place], [address], 02/23/2025 13:22:11 04/16/20 25 04/10/2025 home sleep study No observ ation record ed. [email or web address] [facility] [address] [place] [address], [address], [place], [address], 04/17/2025 14:00:27 Result Notes None recorded. 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 4 10:19:06 Hypercholes terolemia 30996493 Active 2023 MARTITA freire [facility] 4 10:19:21 Smoker 75078836 Active 2023 Abigail Robert MD [address] [place] [address], [phone], [facility] 4 11:36:08 Hyperglycem ia 77558193 Active 2023 Abigail Robert MD [address] [place] [address], [phone], [facility] 4 11:40:14 Chest pain 70587128 Active 2023 Abigail Robert MD [address] [place] [address], [phone], [facility] 4 11:44:14 Acute exacerbatio n of chronic obstructive pulmonary disease 772798647 Active 2023 Abigail Robert MD [address] [place] [address], [phone], [facility] 4 14:27:54 Suspected respiratory disease 607373377 Active 2024 Abigail Robert MD [address] [place] [address], [phone], [facility] 5 16:31:21 Acute bronchitis 56331649 Active 2024 Abigail Robert MD [address] [place] [address], [phone], [facility] 5 16:34:24 Sleep apnea 34264254 Active 2024 Alycia freire [facility], LHoldenLMatthew 5 13:54:09 Problem Notes None recorded. Procedures Surgical History Date Name Laterality Status Provider Name and Address Organization Details Recorded Time [facility]nee Surgery [facility] L[facility]enL[facility]en 04/22/2024 11:16:47 LASIK [facility] 04/22/2024 10:21:23 Hernia Repair [facility], Jorge AlbertoLHoldenCHolden 04/22/2024 11:16:19 Appendectomy completed [facility], LHoldenLHoldenCHolden 04/22/2024 11:16:25 wrist repair completed [facility], L.LHoldenCHolden 04/22/2024 11:16:59 Imaging Results None recorded. Procedure Notes None recorded. Medical Equipment None Reported. Allergies Allergen ID Allergen Name Allergen Category Reaction Reaction Severity Criticality Documentation Date Start Date Code Code System Note Provider Name and Address Organization Details Recorded Time 22691 codeine medicatio n Not available Not available Not available 04/22/2024 2670 RxNorm doesn 't like the way it makes him feel ABELARDO freire [facility], LHoldenLHoldenCHolden 4 11:10:41 Medications Name Sig Start Date Stop Date Status Note LastModified by Organization Details LastModified Time Prescriptio n - Renewal active Not Available Not Available Not Available atorvastati n 40 mg tablet TAKE 1 TABLET BY MOUTH EVERY DAY active Not Available Not Available No t Available doxycycline hyclate 100 mg capsule Take 1 capsule twice a day by oral route for 10 days. 02/12 completed Not Available Not Available Not Available azithromyci n 250 mg tablet TAKE 2 TABLETS BY MOUTH TODAY, THEN TAKE 1 TABLET DAILY FOR 4 DAYS DIRECTED active Not Available Not Available No t Available prednisone 20 mg tablet Take 2 tablets every day by oral route for 5 days. 02/12 completed Not Available Not Available Not Available albuterol sulfate HFA 90 mcg/actuati on aerosol inhaler INHALE 2 PUFFS BY MOUTH EVERY 4 HOURS NEEDED FOR WHEEZE OR FOR SHORTNESS OF BREATH active Not Available Not Available No t Available amoxicillin 875 mg-amber barakat clavulanate 125 mg tablet TAKE 1 TABLET BY MOUTH TWICE DAILY 05/27 completed Not Available Not Available Not Available Trelegy Ellipta 200 mcg-62.5 mcg-25 mcg powder for inhalation INHALE 1 PUFF BY MOUTH EVERY DAY active Not Available Not Available No t Available aspirin 81 mg capsule Take 1 capsule every day by oral route. active Not Available Not Available No t Available albuterol 90 mcg-budeson jaguar 80 mcg/actuati on HFA aerosol inhaler Inhale 2 inhalatio ns every 4 hours by inhalatio n route as needed. active Not Available Not Available No t Available Vitals Date Recorded Body height Body mass index (BMI) Body weight Body temperature Oxygen saturation Oxygen saturation in Arterial blood by Pulse oximetry Heart rate Systolic And Diastolic Provider Name and Address Organization Details Last Updated DateTime 175.26 cm 24.5 kg/m2 04100.3 3 g 97.5 [degF] 98 % 98 % 79 /min 130/76 mm[Hg] [facility] 16:17:03 Date Recorded Body weight Body mass index (BMI) Body height Provider Name and Address Organization Details Last Updated DateTime 04/22/2024 19521.26 g 25 kg/m2 175.26 cm ABELARDO DHILLON [facility] 04/22/2024 11:08:39 Date Recorded Body height Respiratory rate Body mass index (BMI) Body weight Body temperature Heart rate Oxygen saturation Oxygen saturation in Arterial blood by Pulse oximetry Systolic And Diastolic Provider Name and Address Organization Details Last Updated DateTime 175.26 cm 20 /min 25.4 kg/m2 86749.2 9 g 97.3 [degF] 70 /min 96 % 96 % 134/90 mm[Hg] MARTITA MOTT [facility] 4 14:06:20 Date Recorded Body height Body mass index (BMI) Body weight Oxygen saturation Oxygen saturation in Arterial blood by Pulse oximetry Heart rate Respiratory rate Body temperature Systolic And Diastolic Provider Name and Address Organization Details Last Updated DateTime 4 175.26 cm 25.8 kg/m2 98037.6 6 g 96 % 96 % 90 /min 18 /min 98.2 [degF] 144/78 mm[Hg] Deepa Godoy [facility] 4 16:53:52 Social History Question Answer Notes LastModified by [employer] Details LastModified Time Tobacco Smoking Status Current Every Day Smoker ABELARDO freire [facility] 04/22/2024 11:14:19 What Is Your Level Of Caffeine Consumption? Heavy Information not available 04/22/2024 What Type Of Diet Are You Following? REGULAR Information not available 04/22/2024 What Is The Highest Grade Or Level Of School You Have Completed Or The Highest Degree You Have Received? 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 02/12/2025 [email or web address] Information not available 02/12/2025 What Is Your Relationship Status? Information not available 04/22/2024 Do You Have Any Dietary Restrictions? No Information not available 04/22/2024 Sex: Unknown Functional Status Question Answer Note LastModified by [employer] Details LastModified Time Do you use any illicit or recreational drugs? No Information not available 04/22/2024 What is your level of alcohol consumption? None [email or web address] Information not available 02/12/2025 Are you currently employed? Yes Information not available 04/22/2024 Are you able to walk independently without assistance or assistive devices? YESWOREST Information not available 04/22/2024 Are you able to care for yourself independently? Yes Information not available 04/22/2024 Mental Status None recorded. Family History Relationship Description Onset Age of this Age Resolved Age Notes LastModified by Organization Details LastModified Time Sister Diabetes mellitus [email or web address] Not available 2023 11:13:22 Father Parkinson's disease amckale Not available 2023 11:13:44 Medical History No medical history recorded. Immunizations Vaccine Type Date Status Note Provider Nam e and Address Organization Details Recorded Time RSV, recombinant, protein subunit RSVpreF, adjuvant reconstituted, 0.5 mL, PF 09/04/2024 completed Not Available [facility] 16:00:45 Influenza, split virus, trivalent, PF 07/01/2024 completed Leia freire [facility], [facility] 07/01/2024 11:04:04 Past Encounters Encounter ID Performer Location Encounter Start Date Encounter Closed Date Diagnosis/Indication Diagnosis SNOMED-CT Code Diagnosis ICD10 Code Diagnosis IMO Codes Diagnosis Note [id number] Abigail Robert MD [facility] ([facility]) [address] [place] [phone] 04/22/2024 11:04:56 04/22/2024 11:54:51 Chronic obstructive pulmonary disease 18782485 J44.9 Managed well on current medication . The patient had a CT done back in November and the patient has had lung nodules that had showed documented stability over the last a year and a half. Hypercholesterolemia 136 22432 E78.00 Smoker 20002335 F17.200 Smoking cessation. The patient is considerin g assistance for this but is not in the mindset to quit smoking at this time. Hyperglycemia 85490912 R 73.9 Check an A1c today with his labs. Chest pain 18732877 R07. 9 Pain is not typical angina but however the patient does have some risk factors for cardiac disease. I would recommend proceeding with an stress test. [id number] Abigail Robert MD [facility] ([facility]) [address] [place] [phone] 05/27/2024 13:58:20 05/29/2024 10:37:44 Acute exacerbation of chronic obstructive pulmonary disease 472060200 J44.1 We will treat with steroids a little longer. Continue current inhalers. No further antibiotic s at this time. Follow-up if symptoms do not improve. [id number] Abigail Robert MD [facility] ([facility]) [address] [place] [phone] 07/01/2024 09:38:53 07/01/2024 11:08:34 Active or passive immunization 950340532 Z23 [id number] JAYDEN CORMIER [facility] ([facility]) [address] [place] [phone] 07/18/2024 16:46:53 07/18/2024 17:15:39 Chronic obstructive pulmonary disease 91247495 J44.9 Patient will go to ER with any worsening symptoms or increased shortness of breath. [id number] Abigail Robert MD [facility] ([facility]) [address] [place] [id number] 5 02/12/2025 16:00:27 02/12/2025 16:45:08 Chronic obstructive pulmonary disease 79981190 J44.9 The patient has been managed fairly well with current medication s, however there is some concerns for exacerbati on today from illness. Smoker 76267177 F17.200 Patient is due for his yearly low-dose CT for lung cancer screening. Suspected respiratory disease 748034841 R29.818 71720836 Concerned about sleep apnea. Recommend we proceed with home sleep study. Acute bronchitis 2367682 2 J20.9 34283864 Will treat with antibiotic s covering atypical organisms. Health Concerns Section Related Observation LastModified by Organization Detai ls LastModified Time None Recorded Concern Status LastModified by Organization Details LastModified Time None Recorded Advance Directives Directive None Recorded Payers Insurance Date Sequence Insurance Name Policy Number Policy García Covered Member ID García Member ID Guarantor Name 02/22/2025 1 [employer] (MEDICARE REPLACEMENT/A DVANTAGE - PPO) Davy Garcia [id number] Davy Garcia Notes Date Note Type Note Provider Name and Address Organization Details Recorded Time 04/22/2024 text/html Annual WellnessReported by PatientSocial/Behavior al HistoryFor fracture risk, patient reportshistory of fractures. For additional lifestyle factors, patient reportstobacco usebut reportsdrinks alcohol (mild-moderate). For diet and nutrition, patient reportshealthy diet. For physical activity, patient reportsgood physical condition.Mental Status:For depression risk, patient reportsloss of energy.Functional AbilityFor vision, (pt wears glasses and is seeing dr. hair for macula of right eye.). Patient is a 4-year-old gentleman that comes in today to establish care. Patient states he is due for routine lab work. Patient has a history of COPD that has been managed well on current inhalers. She continues to smoke daily. Patient states that he has had a history of high blood sugar in the past and has had prediabetes with his last A1c of 6%. Patient also reports that he has been having chest tightness. There has been no specific aggravating factors for his chest tightness that he has also noticed occasional shortness of breath with that. Patient has no known cardiac history. Abigail Robert MD [address] [place] [address], [phone], [facility] 04/23/2024 10:45:30 05/27/2024 text/html This is a 64-year-old gentleman that comes in today for ER follow-up. States that he was seen and diagnosed with COPD exacerbation. Patient was placed on antibiotics and steroids. The patient did notice some improvement in his symptoms but he still feels a little chest tightness and difficulty breathing. The patient denies any fever. Abigail Robert MD [address] [place] [address], [phone], [facility] 05/29/2024 11:53:46 07/18/2024 text/html COPDReported by PatientROS as noted in the HPI walk in patientpatient is here today for a COPD flare up, patient is taking his proair, trelegy inhalers but it is not helping with his lung pain and SOB that started 5 days ago and has been getting worse everyday. Patient is still smoking JAYDEN CORMIER [address] [place] [address], [phone], [facility] 07/18/2024 17:15:11 02/12/2025 text/html Pt states his lungs do not feel the best, they ache and feel raw with deep breathing. He states it is time to do his yearly CT of his lungs. Patient also reports that he has tired all the time and does not wake up rested. Patient can fall asleep easily in the afternoon. Abigail Robert MD [address] [place] [address], [phone], [facility], Darlene 02/22/2025 19:32:15
--- NOTE | 2025-04-19 14:18 | ECG_ITS ---
[facility] Date: 2025-04-19 Pat Name: Davy Garcia Department: Room: Gender: Male Event Marketing Manager: : 1960 Requested By: Zully Cisneros Order Number: [id number] Bravo MD: Michael Reynolds M.D. Measurements Intervals [place] Rate: 65 P: 70 TN: 159 QRS: 55 QRSD: 104 T: 59 QT: 382 QTc: 399 Interpretive Statements SINUS RHYTHM INCOMPLETE RIGHT BUNDLE BRANCH BLOCK [90+ ms QRS DURATION, TERMINAL R IN V1/V2, 40+ ms S IN I/aVL/V4/V5/V6] INTERPRETATION BASED ON A DEFAULT AGE OF 40 YEARS Compared to ECG 05/17/2024 22:32:44 No significant changes Electronically Signed On 04-20-2025 12:45:17 CDT by Michael Reynolds M.D. [id number]
--- NOTE | 2025-04-19 14:18 | ECG_ITS ---
[facility] Test Date: 2025-04-19 Pat Name: Davy Garcia Department: Room: Gender: Male Discharge Rn: : 1960 Requested By: Zully Cisneros Order Number: [id number] Bravo MD: Michael Reynolds M.D. Measurements Intervals [place] Rate: 65 P: 70 [place]: 159 QRS: 55 QRSD: 104 T: 59 QT: 382 QTc: 399 Interpretive Statements SINUS RHYTHM INCOMPLETE RIGHT BUNDLE BRANCH BLOCK [90+ ms QRS DURATION, TERMINAL R IN V1/V2, 40+ ms S IN I/aVL/V4/V5/V6] INTERPRETATION BASED ON A DEFAULT AGE OF 40 YEARS Compared to ECG 05/17/2024 22:32:44 No significant changes Electronically Signed On 04-20-2025 12:45:23 CDT by Michael Reynolds M.D. [id number]
--- NOTE | 2025-04-19 14:27 | W.ED.SOB ---
HPI - SOB/Dyspnea General: Chief Complaint: Shortness of Breath/Dyspnea Stated Complaint: sob Time Seen by Provider: 04/19/25 14:24 History of Present Illness: HPI Narrative: 65-year-old male with a history of COPD/emphysema, hyperlipidemia, who presents to the emergency room with shortness of breath, dry cough and nasal congestion. He says his inhalers help some but not like it usually does. He says some nose spray helps at x 2. No oxygen requirements. No chest pain. No abdominal pain. No nausea or vomiting. Related Data Home Medications ?Medication ?Instructions ?Recorded ?Confirmed albuterol sulfate 90 mcg/actuation 2 puff inhalation PRN PRN 01/16/24 01/16/24 aerosol inhaler Shortness Of Breath aspirin 81 mg tablet,delayed 81 mg PO DAILY 01/16/24 01/16/24 release atorvastatin 40 mg tablet 40 mg PO DAILY 01/16/24 01/16/24 fluticasone fur. 200 mcg-umeclid 1 inh inhalation DAILY 01/16/24 01/16/24 62.5 mcg-vilant 25 mcg inhalat.powder (Trelegy Ellipta) lysine 500 mg tablet 500 mg PO DAILY 01/16/24 01/16/24 multivitamin 1 tab PO .QOD 01/16/24 01/16/24 vit C 250 mg-vit E 90 mg-zinc 40 1 tab PO BID 01/16/24 01/16/24 mg-copper 1 uo-mzdbwe-vodoua capsule (PreserVision AREDS-2) vit D3 50 mcg-vitamin K1 500 1 cap PO DAILY 01/16/24 01/16/24 mcg-MK4 1,500 mcg-MK7 180 mcg capsule vitamin B complex 1 tab PO DAILY 01/16/24 01/16/24 Previous Rx's ?Medication ?Instructions ?Recorded albuterol sulfate 90 mcg/actuation 2 inh inhalation Q4H PRN shortness 01/16/24 aerosol inhaler of breath or wheezing #6.7 grams azithromycin 250 mg tablet See Rx Instructions PO .COMPLEX #6 01/16/24 (Zithromax Z-Kahlil) tabs prednisone 20 mg tablet 60 mg (3 x 20 mg) PO DAILY #20 tabs 01/16/24 azithromycin 250 mg tablet See Rx Instructions PO .COMPLEX #6 04/19/25 (Zithromax Z-Kahlil) tabs prednisone 20 mg tablet 60 mg (3 x 20 mg) PO DAILY 5 days 04/19/25 #15 tabs Allergies Allergy/AdvReac Type Severity Reaction Status Date / Time codeine Allergy ADR-Headach Verified 04/19/25 14:22 e Review of Systems Narrative: Constitutional symptoms: Negative except as documented in HPI. Skin symptoms: Negative except as documented in HPI. Eye symptoms: Negative except as documented in HPI. ENMT symptoms: Negative except as documented in HPI. Respiratory symptoms: Negative except as documented in HPI. Cardiovascular symptoms: Negative except as documented in HPI. Gastrointestinal symptoms: Negative except as documented in HPI. Genitourinary symptoms: Negative except as documented in HPI. Musculoskeletal symptoms: Negative except as documented in HPI. Neurologic symptoms: Negative except as documented in HPI. Psychiatric symptoms: Negative except as documented in HPI. Endocrine symptoms: Negative except as documented in HPI. Physical Exam Narrative: EXAM NARRATIVE: General: Alert, no acute distress. Skin: Warm, dry. Head: Normocephalic, atraumatic. Neck: Supple, trachea midline. Eye: Extraocular movements are intact. Ears, nose, mouth and throat: Oral mucosa moist. Cardiovascular: Regular rate and rhythm, Normal peripheral perfusion. Respiratory: some expiratory wheeze, mild increased wob, breath sounds are equal, Symmetrical chest wall expansion. Gastrointestinal: Soft, Nontender, Non distended Musculoskeletal: Normal ROM, no deformity. Neurological: Alert and oriented, No focal neurological deficit observed. Psychiatric: Cooperative, appropriate mood & affect. Course Vital Signs: Vital signs: Vital Signs Temperature 97.6 F 04/19/25 14:14 Pulse Rate 63 04/19/25 15:38 Respiratory Rate 18 04/19/25 15:38 Blood Pressure 96/83 04/19/25 15:16 Pulse Oximetry 97 04/19/25 15:38 Oxygen Delivery Me thod Room Air 04/19/25 15:38 MDM - SOB/Dyspnea Medical Decision Making Differential diagnosis for patient with shortness of breath includes but is not limited to and based on the above HPI, review of systems and physical exam: Pneumonia. Bronchitis. Asthma or COPD with acute exacerbation. Acute coronary syndrome / DC. Pulmonary embolism. Anxiety. Congestive heart failure. Viral infections including influenza and Covid-19. Atrial fibrillation. Anxiety. Pleural effusion. Pneumothorax. Orders placed to evaluate differential diagnosis based on the above differential, HPI and physical exam EKG: Time 1418. Rate 65. Normal sinus rhythm, No ST-T changes, no ectopy, incomplete right bundle branch block, This was reviewed and interpreted by myself the ER physician at 1422 Chest x-ray: Emphysematous changes. No acute process. No infiltrate. No pneumothorax. Films were interpreted by myself the emergency room provider and pending final radiology review. Lab Review: Laboratory results were reviewed and interpreted by myself the emergency room physician. No leukocytosis. No anemia. No renal failure. Flu COVID and RSV are negative. I reviewed the patient's medical record. Reexamination: Minimal wheeze. No increased work of breathing. No oxygen requirements. No altered mental status. We discussed perhaps using Afrin for a couple of days but no more for his nasal congestion. Assessment and plan: COPD with acute exacerbation ?IV Solu-Medrol and breathing treatment in the emergency room - Discharged home - Discussed plan with patient. Answered any questions. - Evaluation and treatment of this problem were appropriate in the emergency setting. Lab Data 04/19/25 14:40 04/19/25 14:40 Labs/Radiology: Radiology Impressions Chest X-Ray 04/19/25 14:16 IMPRESSION: 1. No acute disease identified in the chest. 2. Bullous disease again noted. Laboratory Results WBC 10.04 10^3/uL (3.29-11.43) 04/19/25 14:40 RBC 4.31 10^6/uL (3.85-5.65) 04/19/25 14:40 Hgb 14.40 g/dL (11.27-16.99) 04/19/25 14:40 Hct 40.8 % (37-53) 04/19/25 14:40 MCV 94.7 fl (82-101) 04/19/25 14:40 MCH 33.4 pg (27-33) H 04/19/25 14:40 MCHC 35.3 g/dL (30-55) 04/19/25 14:40 RDW 12.2 % (12.1-15.1) 04/19/25 14:40 Plt Count 190 10^3/cmm (157-399) 04/19/25 14:40 MPV 10.6 fL (7.4-10.4) H 04/19/25 14:40 Neut % (Auto) 63.3 % 04/19/25 14:40 Lymph % (Auto) 28.2 % 04/19/25 14:40 Yancey % (Auto) 6.7 % 04/19/25 14:40 Eos % (Auto) 1.0 % 04/19/25 14:40 Baso % (Auto) 0.5 % 04/19/25 14:40 Neut # (Auto) 6.36 10^3/uL (1.8-7.7) 04/19/25 14:40 Lymph # (Auto) 2.8 10^3/uL (0.8-4.8) 04/19/25 14:40 [place]ancey # (Auto) 0.7 10^3/uL (0.2-0.9) 04/19/25 14:40 Eos # (Auto) 0.1 10^3/uL (0.0-0.8) 04/19/25 14:40 Baso # (Auto) 0.1 10^3/uL (0.0-0.1) 04/19/25 14:40 Nucleated RBC % (auto) 0 % 04/19/25 14:40 Nucleated RBCs # 0.0 /100WBC 04/19/25 14:40 Sodium 135 mmol/L (136-145) L 04/19/25 14:40 Potassium 4.3 mmol/L (3.5-5.1) 04/19/25 14:40 Chloride 99 mmol/L (98-107) 04/19/25 14:40 Carbon Dioxide 23 mmol/L (22-29) 04/19/25 14:40 Anion Gap 17.3 (5-19) 04/19/25 14:40 BUN 10 mg/dL (8-23) 04/19/25 14:40 Creatinine 0.7 mg/dL (0.7-1.2) 04/19/25 14:40 GFR Calculation 112.5 mL/min (90-130) 04/19/25 14:40 Glucose 110 mg/dL (65-115) 04/19/25 14:40 Calculated Osmolality 280 mOsm/kg (285-295) L 04/19/25 14:40 Lactic Acid 1.6 mmol/L (0.5-2.2) 04/19/25 14:40 Calcium 9.2 mg/dL (8.5-10.5) 04/19/25 14:40 Total Bilirubin 0.4 mg/dL (0.15-1.2) 04/19/25 14:40 AST 20 U/L (0-40) 04/19/25 14:40 ALT 21 U/L (0-41) 04/19/25 14:40 Alkaline Phosphatase 85 U/L (40-130) 04/19/25 14:40 NT-Pro-B Natriuret Pep < 36 pg/mL (0-125) 04/19/25 14:40 Total Protein 6.5 g/dL (6.6-8.7) L 04/19/25 14:40 Albumin 4.2 g/dL (3.5-5.2) 04/19/25 14:40 Globulin 2.3 g/dL (1.3-4.6) 04/19/25 14:40 Influenza A (PCR) Negative (Negative) 04/19/25 15:07 Influenza Type B (PCR) Negative (Negative) 04/19/25 15:07 RSV (PCR) Negative (Negative) 04/19/25 15:07 SARS-CoV-2 (PCR) Negative (Negative) 04/19/25 15:07 All radiology interpretation(s) finalized by discharge Discharge Plan Discharge Patient Disposition: Home Clinical Impression: Asthma with exacerbation Condition: Stable Prescriptions: New azithromycin [Zithromax Z-Kahlil] 250 mg tablet See Rx Instructions .ROUTE .COMPLEX Qty: 6 0RF Rx Instructions: For 250 mg dose pack: take 500 mg today (day 1), then 250 mg for 4 days (days 2-5) prednisone 20 mg tablet 60 mg PO DAILY 5 Days Qty: 15 0RF No Action multivitamin Tablet 1 tab PO .QOD atorvastatin 40 mg tablet 40 mg PO DAILY Aspir-81 81 mg Tablet,Delayed Release (Dr/Ec) 81 mg PO DAILY vitamin B complex Tablet 1 tab PO DAILY albuterol sulfate 90 mcg/actuation HFA aerosol inhaler 2 puff INHALATION PRN PRN (Reason: Shortness Of Breath) lysine 500 mg Tablet 500 mg PO DAILY Trelegy Ellipta 200-62.5-25 mcg blister with device 1 inh INHALATION DAILY vitamin D3-vit K1-vit MK4-MK7 50-500-1,500 mcg Capsule 1 cap PO DAILY PreserVision AREDS-2 250-90-40-1 mg Capsule 1 tab PO BID Zithromax Z-Kahlil 250 mg tablet See Rx Instructions .ROUTE .COMPLEX Qty: 6 0RF Rx Instructions: For 250 mg dose pack: take 500 mg today (day 1), then 250 mg for 4 days (days 2-5) prednisone 20 mg tablet 60 mg PO DAILY Qty: 20 0RF Rx Instructions: 3 tabs (60 mg) x 3 days. 2 tabs (40 mg) x 3 days. 1 tab (20 mg) x 3 days. 1/2 tab (10 mg) x 4 days albuterol sulfate 90 mcg/actuation HFA aerosol inhaler 2 inh inhalation Q4H PRN (Reason: shortness of breath or wheezing) Qty: 6.7 0RF Rx Instructions: Please provide patient with a spacer Discharge Orders: Discharge ED (Routine); Ordered 04/19/25 Ordered By: Zully Jung Referrals: Surya Robert MD [Primary Care Provider, Family Practice] Discharge Diet: Usual diet Discharge Activity: Increase activity as tolerated Patient Instructions: COPD (Chronic Obstructive Pulmonary Disease) (ED), Opioid Safety, Pain Management, Patient Portal & [place] Instructions Activity Restrictions/Additional Instructions: Thank you for choosing [facility] for your healthcare needs today. You have been screened and evaluated and felt safe for discharge. Health conditions do change or evolve sometimes and as such it is important that you follow up with your Primary Doctor to be re checked, 3-5 days is a general good time frame for follow up. You are always welcome to return to the ED for re assessment if your symptoms are worsening or you have new concerns Print Language: Chinese Coding Level of Care Code ED Service Station Operator for Mario Hylton
[2025-04-19 14:59] LABS: Hematocrit 40.8 % (37-53); Hemoglobin 14.40 g/dL (11.27-16.99); Mean Corpuscular HGB Conc 35.3 g/dL (30-55); Mean Corpuscular Hemoglobin 33.4 pg (27-33); Mean Corpuscular Volume 94.7 fl (82-101); Nucleated Red Blood Cells % 0 %; Platelet Count 190 10^3/cmm (157-399); Red Blood Count 4.31 10^6/uL (3.85-5.65); White Blood Count 10.04 10^3/uL (3.29-11.43)
[2025-04-19] MEDS: methylPREDNISolone sod succ 125 mg/2 mL INJ IVP (15:15)
[2025-04-19 15:16] VITALS: BP 96/83; PULSE 65; O2SAT 98
[2025-04-19 15:20] LABS: Lactic Sepsis W/Reflex 1.6 mmol/L (0.5-2.2)
[2025-04-19 15:29] LABS: Alanine Aminotransferase 21 U/L (0-41); Albumin Level 4.2 g/dL (3.5-5.2); Alkaline Phosphatase 85 U/L (40-130); Anion Gap 17.3 (5-19); Aspartate Amino Transferase 20 U/L (0-40); Blood Urea Nitrogen 10 mg/dL (8-23); Calcium 9.2 mg/dL (8.5-10.5); Carbon Dioxide 23 mmol/L (22-29); Chloride 99 mmol/L (98-107); Creatinine Clr Calc Pharmacy 92.8525; Globulin 2.3 g/dL (1.3-4.6); Glucose 110 mg/dL (65-115); NT Pro B Type Natriuretic Pept < 36 pg/mL (0-125); Osmolality Calculated 280 mOsm/kg (285-295); Potassium 4.3 mmol/L (3.5-5.1); Sodium 135 mmol/L (136-145); Total Protein 6.5 g/dL (6.6-8.7)
[2025-04-19 15:38] VITALS: PULSE 63; RESP 18; O2SAT 97
[2025-04-19 16:16] LABS: Respiratory Syncytial Virus Ce NEGATIVE (Negative); SARS-CoV-2 PCR NEGATIVE (Negative)
[2025-04-19 16:27] VITALS: BP 123/76; PULSE 69; O2SAT 94
== END 2025-04-19 16:29 | disposition home or self-care (01) ==
PROVIDERS: Emergency Provider Emergency Medicine; PCP Family Medicine
DX: J45.901 Unspecified asthma with (acute) exacerbation (principal); Z11.52 Encounter for screening for COVID-19; Z79.82 Long term (current) use of aspirin; J44.9 Chronic obstructive pulmonary disease, unspecified; E78.5 Hyperlipidemia, unspecified
CPT/HCPCS: 36415; 71045; 80053; 83605; 83880; 85025; 87040; 87637; 93005; 94640; 96374; 99285; J2919; J9999